=== PATIENT | male | born 1980 | race Hispanic/Latino ===

== ENCOUNTER → 2018-02-10 | Day surgery (SDC) | payer OTHER ==
[2018-02-08 17:59] LABS: BASOPHILS # (AUTO) 0.1 (0.0-0.1); BASOPHILS % 0.7 % (0.0-1.0); EOSINOPHILS # (AUTO) 0.1 (0.0-0.4); EOSINOPHILS % 1.4 % (0.0-6.0); HEMATOCRIT 40.7 % (38.2-49.6); HEMOGLOBIN 13.9 g/dL (14.0-18.0); LYMPHOCYTES % 41.2 % (18.0-39.1); MEAN CORPUSCULAR HEMOGLOBIN 30.4 pg (28-32); MEAN CORPUSCULAR HGB CONC 34.2 g/dL (31-35); MEAN CORPUSCULAR VOLUME 89.1 fL (81-99); MONOCYTES # (AUTO) 0.5 (0.2-0.8); MONOCYTES % 6.5 % (4.4-11.3); NEUTROPHILS # (AUTO) 3.7 (2.1-6.9); NEUTROPHILS % 49.9 % (38.7-80.0); PLATELET COUNT 191 x10e3/uL (140-360); RED BLOOD COUNT 4.57 x10e6/uL (4.3-5.7); RED CELL DISTRIBUTION WIDTH 12.5 % (11.7-14.4)
[~2018-02-10] MED LIST: ATENOLOL100 MG PO; CLARITHROMYCIN500 MG PO; FENTANYL CITRATE/PF 100MCG/2 ML INJ ONE; GABAPENTIN300 MG PO; INCIVEK375 MG PO; LEVOTHROID100 MCG PO; LEVOTHYROXINE100 MC1 IV; LEVOTHYROXINE125 MCG PO; METOPROLOL TART25 MG PO; MIDAZOLAM HCL 2 MG/2 ML VIAL ONE; PEGASYS180 MCG/01; PRAVASTATIN SOD40 MG; PROPOFOL IV EMULSION 10 MG/ML 20 ML VIAL ONE; RAMIPRIL5 MG PO; RIBASPHERE200 M1 PO; ULTRAM50 MG PO; VERAPAMIL ER240 M1 PO; VIBRAMYCIN100 MG PO
== END | disposition home or self-care (01) ==
LOC: OR 06:21
PROVIDERS: ATTEND Internal Medicine Gastroenterology
DX: K21.0 Gastro-esophageal reflux disease with esophagitis (principal); K29.50 Unspecified chronic gastritis without bleeding; K44.9 Diaphragmatic hernia without obstruction or gangrene; K52.9 Noninfective gastroenteritis and colitis, unspecified; K64.8 Other hemorrhoids; G47.33 Obstructive sleep apnea (adult) (pediatric); I10 Essential (primary) hypertension; E78.5 Hyperlipidemia, unspecified; I48.91 Unspecified atrial fibrillation; B19.20 Unspecified viral hepatitis C without hepatic coma; E07.9 Disorder of thyroid, unspecified; I42.2 Other hypertrophic cardiomyopathy; E66.9 Obesity, unspecified; F32.9 Major depressive disorder, single episode, unspecified; Z71.3 Dietary counseling and surveillance; Z01.810 Encounter for preprocedural cardiovascular examination; Z01.812 Encounter for preprocedural laboratory examination; Z79.82 Long term (current) use of aspirin; Z68.35 Body mass index [BMI] 35.0-35.9, adult; Z86.19 Personal history of other infectious and parasitic diseases; Z95.810 Presence of automatic (implantable) cardiac defibrillator; Z87.891 Personal history of nicotine dependence; Z83.79 Family history of other diseases of the digestive system
CPT/HCPCS: 36415; 43239; 45380; 85025; 93005; J2250; 45378

== ENCOUNTER 2019-03-27 06:50 | Emergency (ER) | payer BC, OTHER ==
[~2019-03-27] VITALS: Ht 170.2 cm; Wt 108.9 kg
[~2019-03-27 06:50] MED LIST changes: -FENTANYL CITRATE/PF 100MCG/2 ML INJ ONE; -MIDAZOLAM HCL 2 MG/2 ML VIAL ONE; -PROPOFOL IV EMULSION 10 MG/ML 20 ML VIAL ONE
[2019-03-27] MEDS ORDERED: NITROGLYCERIN 2% OINT 1 GM PKT ONE (07:20)
[2019-03-27] MEDS ORDERED: KETOROLAC TROMETHAMINE 30 MG/ML VIAL ONE (07:21)
[2019-03-27] MEDS ORDERED: ONDANSETRON HCL INJ 2MG/ML 2ML 2 MG/ML VIAL ONE (07:21)
[2019-03-27] MEDS ORDERED: ASPIRIN 81 MG ENTERIC COATED PO ONE (07:21)
[2019-03-27 07:22] LABS: BASOPHILS # (AUTO) 0.1 (0.0-0.1); BASOPHILS % 0.7 % (0.0-1.0); EOSINOPHILS # (AUTO) 0.1 (0.0-0.4); EOSINOPHILS % 1.9 % (0.0-6.0); HEMATOCRIT 45.3 % (38.2-49.6); HEMOGLOBIN 15.8 g/dL (14.0-18.0); LYMPHOCYTES # (AUTO) 2.6 (1.0-3.2); LYMPHOCYTES % 37.7 % (18.0-39.1); MEAN CORPUSCULAR HEMOGLOBIN 30.5 pg (28-32); MEAN CORPUSCULAR HGB CONC 34.9 g/dL (31-35); MEAN CORPUSCULAR VOLUME 87.5 fL (81-99); MONOCYTES # (AUTO) 0.6 (0.2-0.8); NEUTROPHILS # (AUTO) 3.5 (2.1-6.9); NEUTROPHILS % 50.3 % (38.7-80.0); PLATELET COUNT 202 x10e3/uL (140-360); RED BLOOD COUNT 5.18 x10e6/uL (4.3-5.7); RED CELL DISTRIBUTION WIDTH 12.2 % (11.7-14.4)
[2019-03-27 07:36] LABS: INR 0.8; PROTHROMBIN TIME 11.5 seconds (11.9-14.5)
[2019-03-27 07:37] LABS: PARTIAL THROMBOPLASTIN TIME 28.8 seconds (23.8-35.5)
[2019-03-27 07:46] LABS: ALANINE AMINOTRANSFERASE 22 IU/L (0-55); ALBUMIN/GLOBULIN RATIO 1.1 (0.8-2.0); ALKALINE PHOSPHATASE 74 IU/L (40-150); ANION GAP 14.1 mmol/L (8-16); BLOOD UREA NITROGEN 14 mg/dL (7-26); BUN/CREATININE RATIO 16 (6-25); CALCIUM 9.2 mg/dL (8.4-10.2); CARBON DIOXIDE 22 mmol/L (22-29); CHLORIDE 105 mmol/L (98-107); CREATINE KINASE 91 IU/L (30-200); EST GLOMERULAR FILTRATION RATE > 60 ML/MIN (60-); GLUCOSE 94 mg/dL (74-118); POTASSIUM 4.1 mmol/L (3.5-5.1); SODIUM 137 mmol/L (136-145)
--- NOTE | 2019-03-27 07:48 | Diagnostic Imaging Report ---
EXAMINATION: PA and lateral views of the chest. COMPARISON: 10/30/2016 CLINICAL HISTORY: Chest pain DISCUSSION: Left subclavian approach implantable cardiac device body and leads are unchanged in position, traversing the left side of the mediastinum, presumably within a persistent left SVC. Multiple intact median sternotomy wires. Lungs are well-inflated and without focal airspace consolidation, pleural effusion, or pneumothorax. No overt pulmonary edema. No acute osseous abnormality. IMPRESSION: Postsurgical changes of the mediastinum without acute cardiopulmonary abnormality. Signed by: Dr. Margarito Llanes M.D. on 03/27/2019 7:45 AM
[2019-03-27] MEDS ORDERED: KETOROLAC TROMETHAMINE 30 MG/ML VIAL IV STA (08:31)
[2019-03-27] MEDS ORDERED: ONDANSETRON HCL INJ 2MG/ML 2ML 2 MG/ML VIAL IV STA (08:31)
[2019-03-27] MEDS ORDERED: NITROGLYCERIN 2% OINT 1 GM PKT TOP ONE (08:45)
[2019-03-27] MEDS ORDERED: ASPIRIN 81 MG CHEW TAB PO ONE (08:45)
[2019-03-27 08:46] LABS: BILIRUBIN,URINE NEGATIVE (NEGATIVE); CLARITY,URINE CLEAR (CLEAR); KETONES,URINE NEGATIVE (NEGATIVE); LEUKOCYTE ESTERASE ,URINE NEGATIVE (NEGATIVE); NITRITE,URINE NEGATIVE (NEGATIVE); PROTEIN,URINE DIPSTICK NEGATIVE (NEGATIVE); URINE UROBILINOGEN 0.2 mg/dL (0.2 - 1)
[2019-03-27 08:52] LABS: AMPHETAMINES SCREEN,URINE NEGATIVE (NEGATIVE); BENZODIAZEPINES SCREEN,URINE NEGATIVE (NEGATIVE); PHENCYCLIDINE SCREEN,URINE NEGATIVE (NEGATIVE)
[2019-03-27 08:55] LABS: COLOR,URINE YELLOW (YELLOW)
--- NOTE | 2019-03-27 09:03 | NUR ---
NOTIFIED ECHO OF ORDER.
[2019-03-27 09:06] LABS: BACTERIA,URINE FEW /HPF; EPITHELIAL CELLS,URINE FEW /LPF
[2019-03-27] MEDS ORDERED: ACETAMINOPHEN 325 MG TAB PO ONE (10:30)
[2019-03-27 11:28] LABS: CREATINE KINASE 81 IU/L (30-200)
--- NOTE | 2019-03-27 12:24 | NUR ---
COPIES OF ALL LABS, ECHO, EKG GIVEN FOR F/U AND WORK NOTE AND LENGTHY LIST OF PATHOLOGY SPECIALIST AT PT REQUEST.
== END 2019-03-27 12:25 | disposition home or self-care (01) ==
LOC: ER 06:50
DX: R07.89 Other chest pain (principal)
CPT/HCPCS: 36415; 71046; 80053; 80307; 81001; 82550; 82553; 83880; 84484; 85025; 85610; 85730; 93005; 93306; 99284; J1885; J2405

== ENCOUNTER 2019-11-23 09:53 | Observation (INO) | payer OTHER ==
[~2019-11-23] VITALS: Ht 170.2 cm; Wt 98.4 kg
--- OUTSIDE RECORDS SUMMARY | 2019-11-23 09:56 | XMS REPORT ---
Author Author [facility] Address Unknown Phone Unavailable Care Team Providers Care Sign Language Translator Name Role Phone Blayne MENA Unavailable Unavailable Problems This patient has no known problems. Allergies, Adverse Reactions, Alerts This patient has no known allergies or adverse reactions. Medications This patient has no known medications. Results Test Description Test Time Test Comments Text Results Atomic Results Result Comments CHEST 2 VIEWS 2019-03-27 07:38:00 [place] [address] Patient Name: XOCHITL PRINCE MR #: [id number] : 1980 Age/Sex: 38/M Req #: [id number] Adm Physician: Ordered by: UMESH MENA MD Report #: [id number] Location: ER Room/Bed: Procedure: [id number] DX/CHEST 2 VIEWS Exam Date: 03/27/19 Exam Time: 725 REPORT STATUS: Signed EXAMINATION: PA and lateral views of the chest. COMPAR FAHEEM: 10/30/2016 CLINICAL HISTORY: Chest pain DISCUSSION: Left subclavian approach implantable cardiac device body and leads are unchanged in position, traversing the left side of the mediastinum, presumably within a persistent left SVC. Multiple intact median sternotomy wires. Lungs are well-inflated and without focal airspace consolidation, pleural effusion, or pneumothorax. No overt pulmonary edema. No acute osseous abnormality. IMPRESSION: Postsurgical changes of the mediastinum without acute cardiopulmonary abnormality. Signed by: Dr. Maite De Leon M.D. on 03/27/2019 7:45 AM Dictated By: MAITE DE LEON MD 4 Transcribed By: GARRETT on 03/27/19744 COPY TO: UMESH MENA MD
[2019-11-23] MEDS ORDERED: ONDANSETRON HCL INJ 2MG/ML 2ML 2 MG/ML VIAL IV STA (10:11)
[2019-11-23] MEDS ORDERED: SODIUM CHLORIDE 0.9% 1000ML 1,000 ML IV STA (10:11)
[2019-11-23] MEDS ORDERED: PANTOPRAZOLE 40 MG 10ML VIAL IV STA (10:11)
[2019-11-23] MEDS ORDERED: MORPHINE SULFATE INJ 4 MG/ML INJ 1ML IV STA (10:11)
[2019-11-23 10:34] LABS: BASOPHILS % 0.4 % (0.0-1.0); EOSINOPHILS # (AUTO) 0.1 (0.0-0.4); EOSINOPHILS % 0.6 % (0.0-6.0); HEMATOCRIT 44.2 % (38.2-49.6); HEMOGLOBIN 15.1 g/dL (14.0-18.0); LYMPHOCYTES # (AUTO) 2.3 (1.0-3.2); LYMPHOCYTES % 29.1 % (18.0-39.1); MEAN CORPUSCULAR HEMOGLOBIN 29.8 pg (28-32); MEAN CORPUSCULAR HGB CONC 34.2 g/dL (31-35); MEAN CORPUSCULAR VOLUME 87.4 fL (81-99); MONOCYTES # (AUTO) 0.7 (0.2-0.8); MONOCYTES % 9.3 % (4.4-11.3); NEUTROPHILS # (AUTO) 4.8 (2.1-6.9); NEUTROPHILS % 60.5 % (38.7-80.0); PLATELET COUNT 201 x10e3/uL (140-360); RED BLOOD COUNT 5.06 x10e6/uL (4.3-5.7); RED CELL DISTRIBUTION WIDTH 12.4 % (11.7-14.4)
[2019-11-23 10:54] LABS: CLARITY,URINE CLEAR (CLEAR); COLOR,URINE YELLOW (YELLOW); KETONES,URINE 1+ (NEGATIVE); LEUKOCYTE ESTERASE ,URINE NEGATIVE (NEGATIVE); NITRITE,URINE NEGATIVE (NEGATIVE); PROTEIN,URINE DIPSTICK NEGATIVE (NEGATIVE)
[2019-11-23 10:55] LABS: BACTERIA,URINE RARE /HPF; BILIRUBIN,URINE NEGATIVE (NEGATIVE); EPITHELIAL CELLS,URINE FEW /LPF; RBC,URINE 0-5 /HPF (0-5); URINE UROBILINOGEN 0.2 mg/dL (0.2 - 1); WBC,URINE (MAN) 0-5 /HPF (0-5)
[2019-11-23 11:22] LABS: ALANINE AMINOTRANSFERASE 18 IU/L (0-55); ALBUMIN 4.2 g/dL (3.5-5.0); ALBUMIN/GLOBULIN RATIO 1.2 (0.8-2.0); ALKALINE PHOSPHATASE 70 IU/L (40-150); AMYLASE 53 U/L (25-125); ANION GAP 9.8 mmol/L (8-16); BLOOD UREA NITROGEN 13 mg/dL (7-26); BUN/CREATININE RATIO 14 (6-25); CALCIUM 9.3 mg/dL (8.4-10.2); CARBON DIOXIDE 26 mmol/L (22-29); CHLORIDE 105 mmol/L (98-107); CREATINE KINASE 95 IU/L (30-200); CREATININE, SERUM 0.93 mg/dL (0.72-1.25); EST GLOMERULAR FILTRATION RATE > 60 ML/MIN (60-); GLUCOSE 89 mg/dL (74-118); LIPASE 34 U/L (8-78); POTASSIUM 3.8 mmol/L (3.5-5.1); SODIUM 137 mmol/L (136-145)
--- NOTE | 2019-11-23 11:36 | Diagnostic Imaging Report ---
EXAM: Right upper quadrant abdominal ultrasound INDICATION: Right upper quadrant pain COMPARISON: None. TECHNIQUE: Transverse and longitudinal images of the right upper quadrant abdomen were obtained FINDINGS: Liver: Size: 14.4 cm in the right midclavicular line, normal Appearance: Normal echogenicity, smooth contour Mass: No focal masses Gallbladder: No gallbladder distension, pericholecystic fluid, wall thickening, stone, or reported sonographic Soriano's sign. Gallbladder wall measures 3 mm. Bile Ducts: Intrahepatic Ducts: No dilatation Extrahepatic Ducts: Common bile duct measures 3 mm Pancreas: Visualized portions of the pancreatic head, neck and proximal body are normal. Kidney: The right kidney measures 13.1 cm without evidence of hydronephrosis or stone. Vessels: Aorta: Visualized portions are normal Inferior Vena Cava: Visualized portions are normal Main Portal Vein: 0.8 cm, normal size with hepatopetal flow. Free Fluid: No ascites or pleural effusion IMPRESSION: No sonographic evidence of cholelithiasis or cholecystitis. Signed by: Bebe Scherer MD on 11/23/2019 11:34 AM
[2019-11-23] MEDS ORDERED: SODIUM CHLORIDE 0.9% 50ML 50 ML ONE (13:11)
[2019-11-23] MEDS ORDERED: IOPAMIDOL 370 MG/ML 200 ML INFUS..BTL INJ ONE (13:12)
--- NOTE | 2019-11-23 13:37 | Diagnostic Imaging Report ---
CT abdomen and pelvis with contrast History: Right-sided abdominal pain Comparison: none Technique: serial axial imaging was performed following up to 100cc of non ionic iodinated intravenous contrast as per departmental protocol. Multiplanar images are reconstructed and reviewed when indicated. This CT examination is performed using one or more of the following dose reduction techniques: Automated exposure control, adjustment of the mA and /or kV according to patient size, and/or use of iterative reconstruction technique. Findings: Unremarkable appearance of pancreas and spleen. Unremarkable appearance of liver and gallbladder. Unremarkable appearance of adrenal glands, kidneys, ureters, and urinary bladder. . No small or large bowel obstruction. No apparent bowel wall thickening. Mild enlargement of the appendix. Mild periappendiceal fat stranding. No extraluminal air or periappendiceal fluid collection is seen. No free fluid or lymphadenopathy. No abdominal aortic aneurysm. No aggressive osseous lesion. Impression: Findings concerning for early acute appendicitis. Signed by: Larry Dwyer MD on 11/23/2019 1:34 PM
[2019-11-23] MEDS ORDERED: PIPER-TAZ 3.375 GM 50 ML IV STA (13:44)
[2019-11-23] MEDS ORDERED: HYDROMORPHONE 1MG/1ML INJ IV STA (13:52)
[2019-11-23] MEDS ORDERED: MORPHINE SULFATE 2 MG/ML SYR 1ML IV PRN (14:00)
[2019-11-23] MEDS ORDERED: BUPIVACAINE HCL 0.5% INJ 30 ML VIAL INJ ONE (15:50)
[2019-11-23] MEDS ORDERED: SUGAMMADEX SODIUM 200 MG/2 ML VIAL IV ONE (16:43)
[2019-11-23] MEDS ORDERED: FENTANYL CITRATE/PF 100MCG/2 ML INJ ONE ×2 (17:29→18:50)
[2019-11-23] MEDS ORDERED: PIPER-TAZ 3.375 GM / NS 50ML IV SCH (18:00)
[2019-11-23 18:10] VITALS: BP 136/91
--- NOTE | 2019-11-23 18:12 | NUR ---
Received patient from PACU, a/ox3, s/p lap appendectomy, pains well managed, has 3 trochar sites to abdomen, in bed, call light within reach, VSS and no distress, will monitor.
[2019-11-23] MEDS: SODIUM CHLORIDE 0.9% 1000ML 1,000 ML IV SCH (18:45)
[2019-11-23] MEDS ORDERED: MIDAZOLAM HCL 2 MG/2 ML VIAL ONE (18:50)
--- NOTE | 2019-11-23 19:16 | NUR ---
Rounds completed and report given to on coming nurse, he is aware he will complete assessments.
[2019-11-23] MEDS: MORPHINE SULFATE INJ 4 MG/ML INJ 1ML IV PRN (19:56)
[2019-11-23] MEDS: ONDANSETRON HCL INJ 2MG/ML 2ML 2 MG/ML VIAL IV PRN (19:56)
[2019-11-23 20:00] VITALS: BP 143/89
[2019-11-23 21:15] VITALS: BP 143/89
[2019-11-23] MEDS: PIPER-TAZ 3.375 GM 50 ML IV SCH (21:15)
--- NOTE | 2019-11-23 21:15 | NUR ---
PATIENT RESTING IN BED IN STABLE CONDITION, NO SIGNS OF DISTRESS NOTED. PATIENT VOICES NO PAIN AT THIS TIME AND HAS BEEN PREVIOUSLY MEDICATED ORDERED. IV FLUIDS ARE RUNNING AT ORDERED RATE AND TROCAR SITES ARE INTACT. BED IS IN LOWEST POSITION, BOTH SIDE RAILS ARE UP, CALL LIGHT IS WITHIN REACH, WILL CONTINUE TO MONITOR.
[2019-11-23 23:07] VITALS: BP 143/89
--- NOTE | 2019-11-23 23:20 | Operative Report ---
DATE OF PROCEDURE: 11/23/2019 SURGEON: Margarito Albert MD PREOPERATIVE DIAGNOSIS: Appendicitis. POSTOPERATIVE DIAGNOSIS: Appendicitis. OPERATIVE PROCEDURE: Laparoscopic appendectomy. ANESTHESIA: General, Dr. Joseph. INDICATION: A 39-year-old male with history of abdominal pain for one day with nausea. CT scan show inflamed appendix. The patient consented for laparoscopic appendectomy. Attendant risks discussed. PROCEDURE FINDING: Acute appendicitis. DESCRIPTION OF PROCEDURE: The patient was brought to the OR and intubated. Abdomen was prepped and draped in sterile fashion. Infraumbilical incision was made and a 12 mm port inserted. Insufflation began under direct vision, other port site placed in the right upper quadrant and right lower quadrant. The appendix was noted to be inflamed and adherent to the lateral pelvic wall and partially retrocecal with blunt dissection. We proceeded to mobilize the appendix into the anterior location away from the retrocecal location. The mesoappendix controlled with the LigaSure down to the neck, which was then Endoloop tied with #0 PDS. The appendix was then amputated distal to the tie and placed in an Endopouch and retrieved out of the peritoneal cavity. Operative field was irrigated. Hemostasis was achieved. All ports were removed under direct vision. Fascia closure with 0 Vicryl. Skin was then closed with subcuticular stitch. The patient was extubated and transported to recovery room. BLOOD LOSS: 5-10 mL. Margarito Albert MD DNL/MODL /[id number]
--- NOTE | 2019-11-23 23:44 | Consultation ---
DATE OF CONSULTATION: 11/23/2019 CHIEF COMPLAINT: Abdominal pain. HISTORY OF PRESENT ILLNESS: The patient is a 39-year-old male with 1-day history of pain in the right upper quadrant with nausea. No vomiting. No fever or diarrhea. PAST MEDICAL HISTORY: Positive for cardiomyopathy. PAST SURGICAL HISTORY: Positive for cardiac surgery and inguinal hernia repair. ALLERGIES: HE HAS NO DRUG ALLERGIES. SOCIAL HABITS: He denies smoking or alcohol abuse. REVIEW OF SYSTEMS: No chest pain, shortness of breath, or cough. PHYSICAL EXAMINATION: VITAL SIGNS: Stable. Afebrile. GENERAL: He is awake, alert, in moderate discomfort. HEENT: Sclerae anicteric. NECK: Supple. LUNGS: Clear. HEART: Regular rate and rhythm. ABDOMEN: Soft with guarding tenderness in the right lower quadrant. Mild rebound. EXTREMITIES: No cyanosis or edema. LABORATORY DATA: White cell count is 7, hemoglobin of 15, and creatinine of 0.9. CT of the abdomen show early appendicitis. ASSESSMENT: Appendicitis. PLAN: Laparoscopic appendectomy. Attendant risks discussed. Margarito Albert MD DNJesus/MODL /[id number]
[2019-11-24] VITALS: BP 109/68
[2019-11-24] MEDS: MORPHINE SULFATE INJ 4 MG/ML INJ 1ML IV PRN ×4 (00:07→15:44)
[2019-11-24] MEDS: ONDANSETRON HCL INJ 2MG/ML 2ML 2 MG/ML VIAL IV PRN ×2 (00:07→06:24)
[2019-11-24] MEDS ORDERED: LEVOTHYROXINE112 MCG PO (01:41)
[2019-11-24] MEDS ORDERED: PRAVASTATIN SOD20 MG PO (01:51)
[2019-11-24] MEDS: PIPER-TAZ 3.375 GM 50 ML IV SCH ×3 (01:58→14:45)
[2019-11-24] MEDS: SODIUM CHLORIDE 0.9% 1000ML 1,000 ML IV SCH ×4 (01:58→14:48)
[2019-11-24 06:10] LABS: BASOPHILS % 0.1 % (0.0-1.0); HEMOGLOBIN 13.8 g/dL (14.0-18.0); LYMPHOCYTES # (AUTO) 0.8 (1.0-3.2); MEAN CORPUSCULAR HEMOGLOBIN 30.1 pg (28-32); MEAN CORPUSCULAR HGB CONC 33.7 g/dL (31-35); MEAN CORPUSCULAR VOLUME 89.3 fL (81-99); MONOCYTES # (AUTO) 0.5 (0.2-0.8); MONOCYTES % 6.4 % (4.4-11.3); NEUTROPHILS # (AUTO) 5.7 (2.1-6.9); NEUTROPHILS % 81.1 % (38.7-80.0); PLATELET COUNT 185 x10e3/uL (140-360); RED BLOOD COUNT 4.59 x10e6/uL (4.3-5.7); RED CELL DISTRIBUTION WIDTH 12.2 % (11.7-14.4)
[2019-11-24 06:50] LABS: ALANINE AMINOTRANSFERASE 18 IU/L (0-55); ALBUMIN 3.6 g/dL (3.5-5.0); ALBUMIN/GLOBULIN RATIO 1.1 (0.8-2.0); ALKALINE PHOSPHATASE 59 IU/L (40-150); ANION GAP 11.4 mmol/L (8-16); BLOOD UREA NITROGEN 11 mg/dL (7-26); BUN/CREATININE RATIO 12 (6-25); CARBON DIOXIDE 25 mmol/L (22-29); CHLORIDE 103 mmol/L (98-107); CREATININE, SERUM 0.93 mg/dL (0.72-1.25); EST GLOMERULAR FILTRATION RATE > 60 ML/MIN (60-); POTASSIUM 4.4 mmol/L (3.5-5.1); SODIUM 135 mmol/L (136-145)
[2019-11-24 07:07] LABS: GLUCOSE 109 mg/dL (74-118)
[2019-11-24 08:20] VITALS: BP 114/83
--- NOTE | 2019-11-24 09:15 | NUR ---
ASSESSMENT: No concerns Pt's parents at bedside. Pt expressed no emotional/spiritual concerns. Pt's tray server ([employer]) has been providing spiritual support. Intervention: Provided hospitality and information on how to contact competitive athlete, if needed. Outcome: No need to follow at this time. PILI GARCIA Chief Inspector Spiritual Care Department O: [phone]
[2019-11-24 11:39] VITALS: BP 116/78
[2019-11-24 15:38] VITALS: BP 113/68
--- NOTE | 2019-11-24 18:46 | NUR ---
patient discharged. IV removed- dressing applied and bleeding controlled. patient ambulated off unit in stable condition. discharge instructions given to patient and , denied any questions.
--- NOTE | 2019-11-25 17:28 | Discharge Summary ---
CONSULTING PHYSICIAN: Margarito albert MD CHIEF COMPLAINT: Appendicitis. PAST MEDICAL HISTORY: Cardiomyopathy, hyperlipidemia. PAST SURGICAL HISTORY: Pacer/AICD, CABG 6 years ago, hernia repair 3 years ago. SOCIAL HISTORY: Former smoker. HOSPITAL COURSE: This is a 39-year-old male with a history of CABG, pacer/AICD, cardiomyopathy, hyperlipidemia, who got admitted with complaints of abdominal pain. On arrival, his CT of abdomen showed acute appendicitis and he got evaluated by the Surgery and had appendectomy on 11/23/2019. PHYSICAL EXAMINATION: GENERAL: The patient has been stable. VITAL SIGNS: Include temperature is 96.5, heart rate is 60, blood pressure is 116/78, respiratory rate is 18, and oxygen saturations 97%. DISCHARGE DIAGNOSES: 1. Status post appendectomy. 2. Hypertension. 3. Hypothyroidism. The patient upon discharge is stable. Advised to continue his home medications and follow up with Dr. Albert in 1 week. Dictated by Charmaine Castillo NP MD GINO Okeefe/NATACHA /[id number]
== END 2019-11-24 18:40 | disposition home or self-care (01) ==
LOC: ER 09:53 → INTOOBSV 13:58 → ERHOLD 13:58 → MED/SURG 16:53
PROVIDERS: ADMIT Internal Medicine; ATTEND Internal Medicine
DX: K35.80 Unspecified acute appendicitis (principal); E78.5 Hyperlipidemia, unspecified; Z95.810 Presence of automatic (implantable) cardiac defibrillator; I42.9 Cardiomyopathy, unspecified; G47.33 Obstructive sleep apnea (adult) (pediatric); Z95.1 Presence of aortocoronary bypass graft; Z87.891 Personal history of nicotine dependence; E03.9 Hypothyroidism, unspecified; I10 Essential (primary) hypertension
CPT/HCPCS: 36415 ×2; 44970; 74177; 76705; 80053 ×2; 81001; 82150; 82550; 82553; 83690; 84484; 85025 ×2; 88304; 93005; 99284; C9113; G0378 ×2; J1170; J2250; J2270 ×2; J2405 ×2; J2543 ×2; J3010; J7030 ×2; Q9967

== ENCOUNTER 2020-12-23 12:35 | Emergency (ER) | payer OTHER ==
[~2020-12-23] VITALS: Ht 170.2 cm; Wt 98.4 kg
[~2020-12-23 12:35] MED LIST changes: +LEVOTHYROXINE112 MCG PO; +PRAVASTATIN SOD20 MG PO
[2020-12-23 13:32] LABS: BASOPHILS # (AUTO) 0.1 (0.0-0.1); BASOPHILS % 0.9 % (0.0-1.0); EOSINOPHILS % 0.4 % (0.0-6.0); HEMOGLOBIN 16.3 g/dL (14.0-18.0); LYMPHOCYTES % 26.4 % (18.0-39.1); MEAN CORPUSCULAR HEMOGLOBIN 30.7 pg (28-32); MEAN CORPUSCULAR VOLUME 90.4 fL (81-99); MONOCYTES # (AUTO) 0.6 (0.2-0.8); MONOCYTES % 8.2 % (4.4-11.3); NEUTROPHILS # (AUTO) 4.9 (2.1-6.9); NEUTROPHILS % 63.6 % (38.7-80.0); PLATELET COUNT 224 x10e3/uL (140-360); RED BLOOD COUNT 5.31 x10e6/uL (4.3-5.7); RED CELL DISTRIBUTION WIDTH 12.6 % (11.7-14.4)
[2020-12-23 13:50] LABS: CLARITY,URINE CLEAR (CLEAR); COLOR,URINE YELLOW (YELLOW); KETONES,URINE NEGATIVE (NEGATIVE); LEUKOCYTE ESTERASE ,URINE NEGATIVE (NEGATIVE); NITRITE,URINE NEGATIVE (NEGATIVE); PROTEIN,URINE DIPSTICK NEGATIVE (NEGATIVE); URINE UROBILINOGEN 0.2 mg/dL (0.2 - 1)
[2020-12-23 13:54] LABS: ALANINE AMINOTRANSFERASE 21 IU/L (0-55); ALBUMIN 4.6 g/dL (3.5-5.0); ALBUMIN/GLOBULIN RATIO 1.1 (0.8-2.0); ALKALINE PHOSPHATASE 72 IU/L (40-150); ANION GAP 13.9 mmol/L (8-16); BLOOD UREA NITROGEN 20 mg/dL (7-26); BUN/CREATININE RATIO 22 (6-25); CALCIUM 9.2 mg/dL (8.4-10.2); CARBON DIOXIDE 25 mmol/L (22-29); CHLORIDE 103 mmol/L (98-107); CREATININE, SERUM 0.92 mg/dL (0.72-1.25); EST GLOMERULAR FILTRATION RATE > 60 ML/MIN (60-); GLUCOSE 86 mg/dL (74-118); LIPASE 143 U/L (8-78); POTASSIUM 3.9 mmol/L (3.5-5.1); SODIUM 138 mmol/L (136-145)
[2020-12-23 14:05] LABS: BACTERIA,URINE RARE /HPF; MUCUS,URINE FEW (RARE); RBC,URINE 0-5 /HPF (0-5); WBC,URINE (MAN) 0-5 /HPF (0-5)
[2020-12-23] MEDS ORDERED: IOPAMIDOL 370 MG/ML 200 ML INFUS..BTL INJ ONE (15:36)
[2020-12-23] MEDS ORDERED: SODIUM CHLORIDE 0.9% 50ML 50 ML ONE (15:36)
[2020-12-23] MEDS ORDERED: ONDANSETRON ODT4 MG PO (16:53)
[2020-12-23] MEDS ORDERED: TYLENOL # 31 EA PO (16:53)
[2020-12-23 17:44] VITALS: BP 133/71
== END 2020-12-23 16:55 | disposition home or self-care (01) ==
LOC: ER 13:08
DX: R10.11 Right upper quadrant pain (principal); R11.2 Nausea with vomiting, unspecified; E03.9 Hypothyroidism, unspecified; Z95.810 Presence of automatic (implantable) cardiac defibrillator
CPT/HCPCS: 36415; 74177; 80053; 81001; 83690; 85025; 99284; Q9967